=== PATIENT | female | born 1950 | race Caucasian/White ===

== ENCOUNTER 2020-11-22 19:25 | Outpatient (REF) | payer MEDICARE, SELFPAY ==
[2020-11-22 20:36] LABS: Bilirubin Negative (Negative); Blood Negative (Negative); Clarity Cloudy (Clear); Glucose Negative (Negative); Ketones Negative (Negative); Leukocyte Esterase Trace (Negative); Nitrite Positive (Negative); Specific Gravity 1.025 (1.005-1.025); Urobilinogen 0.2 EU/dL (Up TO 0.2)
[2020-11-22 21:01] LABS: Bacteria Many HPF (Negative); C & S Indicated? Yes; Casts Negative LPF (Negative); Crystals Negative HPF (Negative); Epithelial Cells Few HPF (Negative); Mucus Negative (Negative); RBC 0-2 HPF (0-2)
== END 2020-11-22 19:45 ==
LOC: LBN 19:25
PROVIDERS: PCP Nurse Practitioner Family; Visit Provider Nurse Practitioner Family
DX: R30.0 Dysuria (principal)
CPT/HCPCS: 87077; 81003; 81015; 87086; 87186

== ENCOUNTER 2020-12-12 01:43 | Outpatient (CLI) | payer MEDICARE, SELFPAY ==
--- NOTE | 2020-12-12 12:55 | DI.MAMMO_ITS ---
EXAM: MG MAMMO SCREENING CLINICAL HISTORY: SCREENING, Z12.39 TECHNIQUE: Mammograms were interpreted according to the usual protocol including computer analysis w [employer] CAD system, tomosynthesis and C-view imaging. COMPARISON: [address] [facility]. FINDINGS: The breasts are composed of mainly fatty density , Breast Density category A. No suspicious masses or suspicious microcalcifications are seen. No skin thickening or abnormal axillary lymph nodes are seen. There has been no significant change from prior exams. IMPRESSION: BI-RADS Category 1, Negative mammogram Yearly screening mammography is recommended. Breast Density - Category A, fatty density. A negative radiographic report should not delay biopsy if a dominant or clinically suspicious mass is present. Up to ten percent of cancers are not identified on mammography. A negative report may reinforce clinical impression. Adenosis and dense breasts may obscure an underlying neoplasm. False positive reports average 6 to 10%. Patient will receive a letter notifying them of these results.
== END 2020-12-12 01:44 ==
LOC: DI 01:44
PROVIDERS: PCP Nurse Practitioner Family; Visit Provider Nurse Practitioner Family
DX: Z12.31 Encounter for screening mammogram for malignant neoplasm of breast (principal)
CPT/HCPCS: 77063; 77067

== ENCOUNTER 2021-09-01 01:42 | Outpatient (CLI) | payer MEDICARE, SELFPAY ==
--- NOTE | 2021-09-01 07:00 | DI.MRI_ITS ---
Exam(s) MR LUMBAR SPINE WO EXAM: MR LUMBAR SPINE WO CLINICAL HISTORY: Chronic back pain with bilat sciatica,M54.31.M54.32. TECHNIQUE: Multiplanar multisequence MRI of the Lumbar spine was performed. COMPARISON: CR XR LUMBAR SPINE- 2 OR 3 VIEWS [id number] from 08/07/2015 MR MRI LUMBAR SPINE W/O [id number] from 08/07/2015 CR XR LUMBAR SPINE- 2 OR 3 VIEWS [id number] from 08/07/2015 MR MRI LUMBAR SPINE W/O [id number] from 08/07/2015 FINDINGS: Conus medullaris is at normal level. There is no evidence of conus mass nor subjacent clumping of in trathecal nerve roots to suggest arachnoiditis. The distal thecal sac appears unremarkable and there is again noted to end at the mid S2 level..There is a tiny Tarlov intra sacral cyst at S3 level agai n noted, unchanged. Bones:There are no fractures nor ominous osseous lesions in the lumbar vertebral bodies and visualize d sacrum. With respect to the individual levels... T12-L1: Unremarkable L1-2: Normal disc height and signal. No disc herniation nor central canal stenosis.No foraminal steno sis L2-3: Normal disc height and signal. Mild annular bulging. No distinct disc herniation.There is mil d central spinal canal stenosis noted which is related to short AP dimensions the pedicles and degene rative changes in the facet joints, more so on the right side. There is again noted asymmetric facet arthropathy on the right side, unchanged, and this results in mild right-sided foraminal stenosis at this level despite no loss of disc height. The mild narrowing is related to theright side facet art hropathy. L3-4: Normal disc height. There is annular bulging again noted. Moderate central spinal canal steno sis due to short AP dimensions the pedicles, annular bulging and some degenerative change in the face t joints and ligamentum flavum hypertrophy. No prominent foraminal stenosis. L4-5: Normal disc height but there is now approximately 3 millimeters anterolisthesis L4 upon L5 whic h is related to facet arthropathy bilaterally at this level. This results in severe central spinal c anal stenosis which has further progressed. This listhesis is related to facet arthropathy. There a re no L4 pars defects. Also ligamentum flavum hypertrophy. There is an element of mild foraminal st enosis now evident. There is mild impingement of the exiting nerve roots do the listhesis but no pro minent flattening of these nerve roots. Again noted is high signal within both degenerative facet lora ints at this level. L5-S1: Preserved disc height. No disc herniation. Moderate-severe spinal canal stenosis also noted at this level due to mild annular bulging, short AP dimensions the pedicles and degenerative changes in the facet joints bilaterally at this level. Also ligamentum flavum hypertrophy. Soft tissues: paraspinal soft tissues appear unremarkable. IMPRESSION: 1. Multilevel findings as described individually above. Compared to the prior CT scan of 08/07/2015 the amount a spinal canal stenosis at L4-5 has further increased, this related to the fact that there is now an element of degenerative anterolisthesis of L4 upon L5. 2. Amount of spinal canal stenosis at L5-S1 appears similar to previous as it is the amount of spinal canal stenosis at L3-4. 3. Other findings as above. DATA REPOSITORY:
== END 2021-09-01 02:02 ==
PROVIDERS: PCP Nurse Practitioner Family; Visit Provider Nurse Practitioner Family
DX: M54.31 Sciatica, right side (principal); M54.32 Sciatica, left side; M43.16 Spondylolisthesis, lumbar region; M48.061 Spinal stenosis, lumbar region without neurogenic claudication
CPT/HCPCS: 36415; 80053; 80061; 72148; 83036; 84439; 84443

== ENCOUNTER 2021-09-01 02:44 | Outpatient (CLI) | payer MEDICARE, SELFPAY ==
[2021-09-01 10:40] LABS: Hemoglobin A1C 6.1 % (<5.7)
[2021-09-01 11:44] LABS: ALT 19 U/L (14-59); AST 13 U/L (15-37); Albumin 3.4 g/dL (3.4-5.0); Alkaline Phosphatase 81 U/L (46-116); Anion Gap 6.1 mmol/L (3-11); BUN 14 mg/dL (7-18); Bilirubin, Total 0.5 mg/dL (0.2-1.0); CO2 32.9 mmol/L (21.0-32.0); CREATININE 0.9 mg/dL (0.55-1.02); Calcium 9.2 mg/dL (8.5-10.1); Calculated LDL 121 mg/dL (<100); Chloride 108 mmol/L (98-107); Cholesterol 212 mg/dL (<200); Glucose 97 mg/dL (74-106); HDL Cholesterol 78 mg/dL (40-60); Potassium 4.1 mmol/L (3.5-5.1); Sodium 147 mmol/L (136-145); TSH 0.73 uIU/mL (0.36-3.74); Total Protein 6.2 g/dL (6.4-8.2); Triglyceride 69 mg/dL (<150)
[2021-09-01 12:01] LABS: FREE T4 0.81 ng/dL (0.76-1.46)
== END 2021-09-01 02:45 | disposition home or self-care (01) ==
LOC: LBO 02:44
PROVIDERS: PCP Nurse Practitioner Family; Visit Provider Nurse Practitioner Family
DX: E78.5 Hyperlipidemia, unspecified (principal); R73.01 Impaired fasting glucose
CPT/HCPCS: 36415; 80053; 80061; 83036; 84439; 84443

== ENCOUNTER 2021-10-13 03:59 | Outpatient (CLI) | payer MEDICARE, SELFPAY ==
[2021-10-13 12:47] LABS: Abs Immature Grans 0.01 10^3/uL (0.0-0.06); Absolute Basophil Count 0.05 10^3/uL (0.0-0.2); Absolute Eosinophil Count 0.14 10^3/uL (0.0-0.7); Absolute Lymphocyte Count 2.31 10^3/uL (1.2-3.4); Absolute Neutrophil Count 2.14 10^3/uL (1.2-6.7); Eosinophils % 2.7; HCT 40.3 % (36.0-46.0); HGB 12.5 g/dL (11.2-15.7); Immature Grans % 0.2; MCV 90.4 fL (80-95); Monocytes % 11.4; Neutrophils % 40.7; Nucleated RBC 0 %; Platelet Count 231 10^3/uL (130-400); RBC 4.46 10^6/uL (3.93-5.22); RDW 14.5 % (11.7-14.6); RDW-SD 48.1 fL; WBC 5.25 10^3/uL (4.4-10.8)
== END 2021-10-13 04:00 | disposition home or self-care (01) ==
LOC: LBO 04:00
PROVIDERS: PCP Nurse Practitioner Family; Visit Provider Nurse Practitioner Family
DX: R53.83 Other fatigue (principal)
CPT/HCPCS: 36415; 85025

== ENCOUNTER 2021-11-11 01:15 | Outpatient (CLI) | payer MEDICARE, SELFPAY ==
--- NOTE | 2021-11-11 06:45 | DI.US_ITS ---
Exam(s) US THYROID EXAM: US THYROID CLINICAL HISTORY: Hx of thyroid nodule, s/p partial thyroidectomy,Z86.39 TECHNIQUE: Ultrasound performed using standard protocol. COMPARISON: US US THYROID AND OR PARATHYROID [id number] from 08/20/2015 FINDINGS: Thyroid ultrasound was performed according to the usual protocol. The patient has had a prior left l obectomy. Right lobe measures 5.6 x 3.0 x 2.5 cm. The parenchyma is heterogeneous. There is a 3.7 cm in diameter mass of the lower pole of the right thyroid lobe. This is cysts solid and hyperechoic with smooth margins and wider than tall. No echogenic foci. This is a TR 3 lesion b y the TI-RADS classification. Fine needle aspiration is recommended for TR 3 lesions greater than 2. 5 cm in diameter. Two 4 millimeter nodules are also seen in right thyroid lobe, these are TR 4 and TR 2 category respec tively. No follow-up recommended for these nodules. IMPRESSION: Fine needle aspiration recommended for 3.7 cm greatest diameter inferior pole right thyroid lobe mas s, TR 3 in TI-RADS classification. DATA REPOSITORY:
== END 2021-11-11 01:35 ==
PROVIDERS: PCP Nurse Practitioner Family; Visit Provider Nurse Practitioner Family
DX: Z86.39 Personal history of other endocrine, nutritional and metabolic disease (principal); E04.2 Nontoxic multinodular goiter
CPT/HCPCS: 76536

== ENCOUNTER 2021-12-31 01:02 | Outpatient (CLI) | payer MEDICARE, SELFPAY ==
--- NOTE | 2021-12-31 07:15 | DI.MAMMO_ITS ---
Exam(s) MAMMO SCREENING EXAM: MAMMO SCREENING CLINICAL HISTORY: screening,Z12.39 TECHNIQUE: Mammograms were interpreted according to the usual protocol including computer analysis w [employer] system, tomosynthesis and C-view imaging. COMPARISON: FINDINGS: The breasts are of moderate density with fairly symmetrical distribution of fibroglandular tissue. N o dominant mass or clumped microcalcification is identified in either breast. The current examinatio n is compared with previous examinations including December 2020 and there has been no gross interval change in appearance in comparison with the prior studies. IMPRESSION: No specific evidence of malignancy at this time. Routine screening examinations are suggested at yea rly intervals in this age group according to the ACS ACR guidelines. BI-RADS Category 1 - Negative Breast Density - Category B - Scattered areas of fibroglandular density
== END 2021-12-31 01:22 ==
PROVIDERS: PCP Nurse Practitioner Family; Visit Provider Nurse Practitioner Family
DX: Z12.31 Encounter for screening mammogram for malignant neoplasm of breast (principal)
CPT/HCPCS: 77063; 77067

== ENCOUNTER 2022-04-17 01:28 | Outpatient (CLI) | payer MEDICARE, SELFPAY ==
[2022-04-17 12:44] LABS: FREE T4 0.81 ng/dL (0.76-1.46); TSH 1.17 uIU/mL (0.36-3.74)
[2022-04-17 22:20] LABS: T3, Total 110 ng/dL (97-169)
== END 2022-04-17 01:29 | disposition home or self-care (01) ==
LOC: LBO 01:29
PROVIDERS: PCP Nurse Practitioner Family; Visit Provider Student in an Organized Health Care Education/Training Program
DX: E04.1 Nontoxic single thyroid nodule (principal)
CPT/HCPCS: 36415; 84439; 84443; 84480

== ENCOUNTER → 2022-06-23 02:20 | Outpatient (CLI) | payer MEDICARE, SELFPAY ==
--- NOTE | 2022-06-23 07:30 | DI.RAD_ITS ---
Exam(s) XR SHOULDER LT COMPLETE 2+V EXAM: XR SHOULDER LT COMPLETE 2+V CLINICAL HISTORY: bilateral shoulder pain, suspecting OA,M25.511,M25.512 TECHNIQUE: COMPARISON: No exams were available for comparison FINDINGS: Five views were obtained. There is mild narrowing of cartilaginous joint space of the glenohumeral j oint. There are very prominent osteophytes of the acromion with anterior extension of acromial osteo phyte noted on the Y-view. There are mild marginal osteophytes of the glenoid and humeral head. IMPRESSION: Degenerative changes of the shoulder as described above. RADIATION DOSE DELIVERED: Total DLP
--- NOTE | 2022-06-23 07:30 | DI.RAD_ITS ---
Exam(s) XR SHOULDER RT COMPLETE 2+V EXAM: XR SHOULDER RT COMPLETE 2+V CLINICAL HISTORY: bilateral shoulder pain, suspecting OA,M25.511, M25.512 TECHNIQUE: COMPARISON: CR XR SHOULDER LT COMPLETE 2+V from 06/23/2022 FINDINGS: Five views were obtained. There is a probable mild narrowing of the cartilaginous joint space of the glenohumeral joint. There are moderate hypertrophic degenerative changes of the acromioclavicular j oint. Moderate marginal osteophytes of glenohumeral joint noted as well. No other significant bony abnormality seen. IMPRESSION: DJD of acromioclavicular and glenohumeral joints. RADIATION DOSE DELIVERED: Total DLP
--- NOTE | 2022-06-23 07:33 | DI.RAD_ITS ---
Exam(s) XR HIP PELVIS ADULT BL EXAM: XR HIP PELVIS ADULT BL CLINICAL HISTORY: bilateral hip pain, suspecting OA,M25.551,M25.552 TECHNIQUE: COMPARISON: No exams were available for comparison FINDINGS: Three views were obtained. There is moderate loss of the cartilaginous joint spaces of both hips sup eriorly. Mild bilateral subchondral sclerotic changes of the acetabula seen bilaterally. Mild larry nal acetabular osteophytes and trochanteric osteophytes noted bilaterally. Note is also made of degenerative changes of the lower lumbar spine and SI joints bilaterally. IMPRESSION: Moderate DJD of the hip joints bilaterally. RADIATION DOSE DELIVERED: Total DLP
== END ==
PROVIDERS: PCP Nurse Practitioner Family; Visit Provider Nurse Practitioner Family
DX: M19.011 Primary osteoarthritis, right shoulder (principal); M16.0 Bilateral primary osteoarthritis of hip; M19.012 Primary osteoarthritis, left shoulder
CPT/HCPCS: 73521; 73030

== ENCOUNTER 2022-07-28 08:24 | Outpatient (CLI) | payer MEDICARE, SELFPAY ==
--- NOTE | 2022-07-28 08:24 | RT.EKG_ITS ---
APPROVED REPORT Exam: Resting ECG Reason for Exam: HTN, chest pain Patient Location: O HR:58 bpm ECG Measurements Heart Rate 58 AXIS UT 193 P 26 QRSd 105 QRS -8 QT 429 T 25 QTc 422 Conclusion Sinus rhythm...normal P axis, V-rate 50- 99 Normal Electrocardiogram
== END 2022-07-28 08:25 | disposition home or self-care (01) ==
LOC: DI.CARD 08:26
PROVIDERS: PCP Nurse Practitioner Family; Visit Provider Internal Medicine Cardiovascular Disease
DX: I10 Essential (primary) hypertension (principal); R07.9 Chest pain, unspecified
CPT/HCPCS: 93010

== ENCOUNTER → 2022-07-28 13:39 | Outpatient (BNVA) | payer MEDICARE, SELFPAY | PROVIDERS: PCP Nurse Practitioner Family; Referring Provider Nurse Practitioner Family; Visit Provider Internal Medicine Cardiovascular Disease | DX: R07.89 Other chest pain (principal); I10 Essential (primary) hypertension; E78.5 Hyperlipidemia, unspecified | CPT/HCPCS: 93005; 99203 ==

== ENCOUNTER → 2022-08-04 13:43 | Outpatient (BNVA) | payer MEDICARE, SELFPAY | PROVIDERS: PCP Nurse Practitioner Family; Referring Provider Nurse Practitioner Family; Visit Provider Student in an Organized Health Care Education/Training Program | DX: M75.102 Unspecified rotator cuff tear or rupture of left shoulder, not specified as traumatic (principal); M12.811 Other specific arthropathies, not elsewhere classified, right shoulder; M12.812 Other specific arthropathies, not elsewhere classified, left shoulder | CPT/HCPCS: 99203; 99213 ==

== ENCOUNTER 2022-08-11 14:26 | Outpatient (CLI) | payer MEDICARE, SELFPAY ==
--- NOTE | 2022-08-11 14:15 | RT.EKG_ITS ---
APPROVED REPORT Exam: Resting ECG Reason for Exam: Dizzy Patient Location: O HR:53 bpm ECG Measurements Heart Rate 53 AXIS MT 188 P 25 QRSd 103 QRS 22 QT 458 T 31 QTc 430 Conclusion Sinus rhythm...normal P axis, V-rate 50- 99 Normal Electrocardiogram
== END 2022-08-11 14:27 | disposition home or self-care (01) ==
LOC: DI.CM 14:26
PROVIDERS: PCP Nurse Practitioner Family; Visit Provider Nurse Practitioner Family
DX: R42 Dizziness and giddiness (principal); R07.89 Other chest pain
CPT/HCPCS: 93010

== ENCOUNTER → 2022-09-29 02:48 | Outpatient (CLI) | payer MEDICARE, SELFPAY ==
--- NOTE | 2022-09-29 10:31 | DI.US_ITS ---
APPROVED REPORT EXAM: Comprehensive 2D, Doppler, and color-flow Echocardiogram Patient Location: Out-Patient Vest Maker: Ericka Ramos RDCS (AE) Indications: Chest pain, HTN Other Information Study Quality: Adequate Conclusion Normal left ventricular wall thickness and chamber size. Estimated ejection fraction is 60%. Wall m otion is normal Normal right ventricular size and systolic function Both atria are normal in size Aortic valve is trileaflet with trace regurgitation Normal mitral valve with mild regurgitation Normal tricuspid valve with moderate eccentric regurgitation. Estimated right ventricular systolic p ressure is 28 mmHg Mildly dilated ascending aorta Wall motion Left Ventricle The left ventricle is normal size. The left ventricular systolic function is normal. The left ventric ular ejection fraction is within the normal range. There is normal left ventricular wall thickness. T here is normal LV segmental wall motion. There is no ventricular septal defect visualized. LVEF is 60 %. Right Ventricle The right ventricle is normal size. The right ventricular systolic function is normal. The RVSP is 27 .6mmHg. Atria The left atrium size is normal. The right atrium size is normal. The interatrial septum is intact wit h no evidence for an atrial septal defect. Aortic Valve The aortic valve is normal in structure. Aortic valve is trileaflet. There is no aortic valvular sten osis. Trace aortic regurgitation. Mitral Valve The mitral valve is normal in structure. No evidence of mitral valve stenosis. Mild mitral regurgitat ion. Tricuspid Valve The tricuspid valve is normal in structure. There is no tricuspid valve stenosis. Moderate tricuspid regurgitation. Pulmonic Valve The pulmonary valve is normal in structure. There is no pulmonic valvular stenosis. Trace pulmonic re gurgitation. Great Vessels The aortic root is normal in size. The ascending aorta is mildly dilated. Aortic arch is normal in ca liber. IVC is normal in size and collapses >50% with inspiration. Pericardium There is no pericardial effusion. 2D Dimensions IVSD d PLAX 0.90 cm F: 0.6-1.0 LV Vol A2C d MOD 100.7 mL LVPW d PLAX 0.87 cm F: 0.6 - 1.0 LV Vol A4C d MOD 106.7 mL LVID d PLAX 4.58 cm F: 3.8 - 5.2 LA vol/ BSA A2C s A-L 29.0 mL/m2 LVDs 3.00 cm F: 2.2 - 3.5 LA vol/ BSA A4C s A-L 21.8 mL/m2 Ao Root d 2.93 cm F: 2.7 - 3.3 LA Vol/ BSA Biplane s A-L 26.0 mL/m2 RA Area A4C 15.49 cm2 LA Area A4C s MOD 15.53 cm2 RA Vol/ BSA A4C s A-L 23.9 mL/m2 LA Area A2C s MOD 18.45 cm2 Ao Asc Diam d 3.81 cm F: 2.3 - 3.1 LV EF A4C MOD 59.6 % LV EF Teichholz 62.6 % LV EF A2C MOD 60.4 % LVEF (Cutler's) 59.51 % F: 54 - 74 LV EF Biplane MOD 59.5 % LV Volume 81.28 mL F: 46 - 106 SV 62.11 mL LV Volume Index 45.40 mL/m2 F: 29 - 61 SV Index 34.63 mL/m2 LV Vol Biplane MOD 104.4 mL FS 33.70 % M-Mode TAPSE 2.64 cm (M/F) >1.7 LV Diastology MV E' medial 0.060 (>0.07 m/s) E/A Ratio 0.9 LV E/e MED 13.60 (<14) MV E Vmax 0.82 (0.4-1.3 m/s) MV E' lateral 0.075 (>0.1 m/s) MV A Vmax 0.95 (0.4-1.3 m/s) LV E/e LAT 10.95 (<14) MV E/A Ratio 0.84 MV E/E' medial 13.62 MV E/E' lateral 10.96 Aortic Valve LVOT Area 2.86 cm2 AoV Area Vmax 1.92 cm2 LVOT Vmax 0.90 m/s AoV Area/ BSA (Vmax) 1.07 cm2/m2 LVOT Mean Royer. 0.56 m/s MARQUEZ Mean Royer. 1.78 cm2 LVOT Peak Grad 3.3 mmHg MARQUEZ Mean Royer. Index 0.99 cm2/m2 LVOT Mean Grad 1.5 mmHg LVOT VTI 0.230 m LVOT Diam s 1.90 cm AoV Vmax 1.35 m/s Velocity Ratio 0.66 AoV Mean Royer. 0.89 m/s AoV Peak Grad 7.2 mmHg LVOT SV 65.87 mL AoV Mean Grad 3.7 mmHg AoV VTI 0.289 m AoV Area VTI 2.28 cm2 AoV Area/ BSA (VTI) 1.27 cm/m2 Mitral Valve MV DT 202 (160-240 msec) MV PHT 58 msec MV Area PHT 3.76 cm2 MV VTI 0.434 m MV Area VTI 1.52 (4.0-6.0 cm2) Pulmonary Valve PV Vmax 0.77 (0.5-1.5 m/s) RVOT Peak Gr. 1.51 mmHg PV Peak Grad 2.4 mmHg RVOT Mean Gr. 0.85 mmHg PV Mean Grad 1.1 mmHg RVOT VTI 0.170 m PV VTI 0.171 m RVOT Vmax 0.61 m/s Tricuspid Valve TR Peak Grad 24.6 mmHg TR Vmax 2.48 m/s RA Pressure 3.00 mmHg RVSP (TR) 27.6 mmHg
== END ==
PROVIDERS: PCP Nurse Practitioner Family; Visit Provider Internal Medicine Cardiovascular Disease
DX: R07.9 Chest pain, unspecified (principal)
CPT/HCPCS: 93306

== ENCOUNTER → 2022-10-06 11:01 | Outpatient (BNVA) | payer MEDICARE, SELFPAY | PROVIDERS: PCP Nurse Practitioner Family; Referring Provider Nurse Practitioner Family; Visit Provider Student in an Organized Health Care Education/Training Program | DX: M19.011 Primary osteoarthritis, right shoulder (principal); M75.102 Unspecified rotator cuff tear or rupture of left shoulder, not specified as traumatic | CPT/HCPCS: 99213 ==

== ENCOUNTER 2023-01-14 01:22 | Outpatient (CLI) | payer MEDICARE, SELFPAY ==
--- NOTE | 2023-01-14 07:00 | DI.MAMMO_ITS ---
Exam(s) MAMMO SCREENING EXAM: MAMMO SCREENING CLINICAL HISTORY: screening,Z12.39 TECHNIQUE: Mammograms were interpreted according to the usual protocol including computer analysis w [employer] CAD system, tomosynthesis and C-view imaging. COMPARISON: 28 August 2016 through January 20 FINDINGS: The breasts are composed of scattered fibroglandular densities, Breast Density category B. No suspicious masses or suspicious microcalcifications are seen. No skin thickening or abnormal axillary lymph nodes are seen. There has been no significant change from prior exams. IMPRESSION: BI-RADS Category 1, Negative mammogram Yearly screening mammography is recommended. Breast Density - Category B, scattered fibroglandular densities. A negative radiographic report should not delay biopsy if a dominant or clinically suspicious mass is present. Up to ten percent of cancers are not identified on mammography. A negative report may reinforce clinical impression. Adenosis and dense breasts may obscure an underlying neoplasm. False positive reports average 6 to 10%. Patient will receive a letter notifying them of these results.
== END 2023-01-14 01:42 ==
LOC: DI 01:22
PROVIDERS: PCP Nurse Practitioner Family; Visit Provider Nurse Practitioner Family
DX: Z12.31 Encounter for screening mammogram for malignant neoplasm of breast (principal)
CPT/HCPCS: 77063; 77067

== ENCOUNTER 2023-01-14 02:11 | Outpatient (CLI) | payer MEDICARE, SELFPAY ==
[2023-01-14 13:40] LABS: ESR 8 mm/hr (0-30)
[2023-01-14 13:47] LABS: Hemoglobin A1C 5.9 % (<5.7)
[2023-01-14 15:03] LABS: BUN 17 mg/dL (7-18); CREATININE 0.9 mg/dL (0.55-1.02); Calculated LDL 118 mg/dL (<100); Chloride 105 mmol/L (98-107); Cholesterol 214 mg/dL (<200); Estimated GFR 67.08 (mL/min/1.73m2); Glucose 88 mg/dL (74-106); HDL Cholesterol 83 mg/dL (40-60); Sodium 144 mmol/L (136-145); Triglyceride 67 mg/dL (<150)
[2023-01-14 21:51] LABS: CRP, High Sensitivity 1.41 mg/L (See Note)
== END 2023-01-14 02:12 | disposition home or self-care (01) ==
LOC: LBO 02:11
PROVIDERS: PCP Nurse Practitioner Family; Visit Provider Nurse Practitioner Family
DX: E04.1 Nontoxic single thyroid nodule (principal); I10 Essential (primary) hypertension; R73.03 Prediabetes; R07.9 Chest pain, unspecified; M25.551 Pain in right hip; M25.552 Pain in left hip; M25.511 Pain in right shoulder; M25.512 Pain in left shoulder
CPT/HCPCS: 36415; 80048; 80061; 85652; 86141; 87798; 83036; 84443; 86431; 86618

== ENCOUNTER 2023-01-15 01:21 | Outpatient (CLI) | payer MEDICARE, SELFPAY ==
[2023-01-15 22:12] LABS: Rheumatoid Factor <8.6 IU/mL (<12.0)
[2023-01-17 19:08] LABS: Anaplasma phagocytophilum Negative (Negative); B. miyamotoi PCR Negative (Negative); Babesia divergens/MO-1 Negative (Negative); Babesia duncani Negative (Negative); Babesia microti Negative (Negative); Ehrlichia chaffeensis Negative (Negative); Ehrlichia ewingii/canis Negative (Negative); Ehrlichia muris eauclairensis Negative (Negative)
[2023-01-18 09:48] LABS: Lyme Ab w Rflx to Lyme Confirm Negative (Negative)
== END 2023-01-15 01:22 | disposition home or self-care (01) ==
LOC: LOS 01:22
PROVIDERS: PCP Nurse Practitioner Family; Visit Provider Nurse Practitioner Family
DX: M25.511 Pain in right shoulder (principal); M25.512 Pain in left shoulder; M25.551 Pain in right hip; M25.552 Pain in left hip; M25.50 Pain in unspecified joint
CPT/HCPCS: 36415; 87798; 86431; 86618

== ENCOUNTER → 2023-07-29 10:39 | Outpatient (BNVA) | payer MEDICARE, SELFPAY | PROVIDERS: PCP Nurse Practitioner Family; Referring Provider Nurse Practitioner Family; Visit Provider Internal Medicine Cardiovascular Disease | DX: I10 Essential (primary) hypertension (principal) | CPT/HCPCS: 99212 ==

== ENCOUNTER 2023-12-24 01:48 | Outpatient (CLI) | payer MEDICARE, SELFPAY ==
[2023-12-24 13:18] LABS: Hemoglobin A1C 5.7 % (<5.7)
[2023-12-24 13:24] LABS: Anion Gap 7.8 mmol/L (3-11); BUN 20 mg/dL (7-18); CO2 32.2 mmol/L (21.0-32.0); Calcium 9.4 mg/dL (8.5-10.1); Chloride 105 mmol/L (98-107); Estimated GFR 58.75 (mL/min/1.73m2); Glucose 104 mg/dL (74-106); Potassium 3.8 mmol/L (3.5-5.1); Sodium 145 mmol/L (136-145)
[2023-12-24 22:46] LABS: Hepatitis C Ab w Rflx HCV PCR Negative (Negative)
== END 2023-12-24 01:49 | disposition home or self-care (01) ==
LOC: LBO 01:48
PROVIDERS: PCP Nurse Practitioner Family; Visit Provider Nurse Practitioner Family
DX: I10 Essential (primary) hypertension (principal); R73.03 Prediabetes
CPT/HCPCS: 36415; 80048; 86803; 83036

== ENCOUNTER → 2024-01-19 03:50 | Outpatient (CLI) | payer MEDICARE, SELFPAY ==
--- NOTE | 2024-01-19 07:30 | DI.MAMMO_ITS ---
Exam(s) MAMMO SCREENING EXAM: MAMMO SCREENING CLINICAL HISTORY: screening,Z12.39 TECHNIQUE: Mammograms were interpreted according to the usual protocol including computer analysis w [employer] CAD system, tomosynthesis and C-view imaging. COMPARISON: 2015 through 2022 FINDINGS: The breasts are composed of scattered fibroglandular densities, Breast Density category B. No suspicious masses or suspicious microcalcifications are seen. No skin thickening or abnormal axillary lymph nodes are seen. There has been no significant change from prior exams. IMPRESSION: BI-RADS Category 1, Negative mammogram Yearly screening mammography is recommended. Breast Density - Category B, scattered fibroglandular densities. A negative radiographic report should not delay biopsy if a dominant or clinically suspicious mass is present. Up to ten percent of cancers are not identified on mammography. A negative report may reinforce clinical impression. Adenosis and dense breasts may obscure an underlying neoplasm. False positive reports average 6 to 10%. Patient will receive a letter notifying them of these results.
== END ==
PROVIDERS: PCP Nurse Practitioner Family; Visit Provider Nurse Practitioner Family
DX: Z12.31 Encounter for screening mammogram for malignant neoplasm of breast (principal)
CPT/HCPCS: 77063; 77067

== ENCOUNTER 2025-03-01 02:23 | Outpatient (CLI) | payer MEDICARE, SELFPAY ==
--- NOTE | 2025-03-01 07:15 | DI.MRI_ITS ---
Exam(s) MR LUMBAR SPINE WO EXAM: MR LUMBAR SPINE WO CLINICAL HISTORY: chronic low back pain,LUMBOSACRAL RADICULOPATHY DUE TO DJD. TECHNIQUE: Multiplanar multisequence MRI of the Lumbar spine was performed. COMPARISON: MR MR LUMBAR SPINE WO from 09/01/2021 FINDINGS: Bones: The last intervertebral disc space is designated the L5/S1 level for the numbering purpose of this examination. The vertebral body heights are well maintained. Alignment is satisfactory. The si gnal characteristics are unremarkable. Cord: The conus tip ends at the L1 level. It is of normal size and signal intensity. T12-L1: No disc herniations or bulges are present. No central spinal canal or neural foraminal stenos is. L1-2: No disc herniations or bulges are present. No central spinal canal or neural foraminal stenosis . L2-3: No disc herniations or bulges are present. There are degenerative changes of the facets and hyp ertrophy of the ligamentum flavum. There is mild narrowing of the central spinal canal.There is mild bilateral neural foraminal narrowing. L3-4: There is a diffuse disc bulge. There are degenerative changes of the facets with hypertrophy of the ligamentum flavum. The findings cause marked central spinal canal stenosis. There is moderate bi lateral neural foraminal stenosis. L4-5: There is mild anterolisthesis of L4 on L5. There is a diffuse disc bulge. There are hypertrophi c changes of the facets and ligamentum flavum. There is marked central spinal canal stenosis. There i s moderately severe bilateral neural foraminal stenosis. L5-S1: No disc herniations or bulges are present. There are degenerative changes of the facets and hy pertrophy of the ligamentum flavum. The findings do cause moderate narrowing of the central spinal ca nal.There is [id number] bilateral neural foraminal stenosis, left greater than right. Soft tissues: The visualized SI joints and sacrum are well maintained. The paraspinal soft tissues ar e unremarkable. There are few small synovial cyst associated with the facet joints in the lumbar spin e which project into the soft tissues. They do not project into the spinal canal to cause any nerve root or central spinal canal concerns. Incidental note is made of a small lipoma in the right parasp inal muscles. IMPRESSION: 1. Marked degenerative changes seen at L4-L5 causing marked central spinal canal stenosis and bilater al neural foraminal stenosis. 2. Marked degenerative changes at L3-L4 causing marked central spinal canal stenosis and bilateral ne ural foraminal stenosis. 3. Degenerative changes seen at L5-S1 with moderate central spinal canal stenosis and bilateral neura l foraminal stenosis. 4. Degenerative changes at L2-3 causing mild bilateral neural foraminal stenosis and mild central spi nal canal stenosis. DATA REPOSITORY:
== END 2025-03-01 02:43 ==
LOC: DI 02:23
PROVIDERS: PCP Nurse Practitioner Family; Visit Provider Nurse Practitioner Family
DX: M47.27 Other spondylosis with radiculopathy, lumbosacral region (principal)
CPT/HCPCS: 72148

== ENCOUNTER 2025-03-08 00:28 | Outpatient (CLI) | payer MEDICARE, SELFPAY ==
--- NOTE | 2025-03-08 15:25 | DI.MAMMO_ITS ---
Exam(s) MAMMO SCREENING EXAM: MAMMO SCREENING CLINICAL HISTORY: screening,Z12.39. TECHNIQUE: Bilateral full field digital CC and MLO mammographic images were obtained with 3D tomosyn thesis and utilizing computer aided detection (CAD). COMPARISON: Prior mammograms were reviewed. FINDINGS: There has been no significant change in the appearance and distribution of the fibroglandular tissue. There are no new spiculated masses nor malignant appearing microcalcification groups. There is no significant architectural distortion nor skin thickening-retraction. IMPRESSION: No radiographic evidence of malignancy. BI-RADS Category 1 - Negative Breast Density - Category B - There are scattered areas of fibroglandular density. Breast density Category C or D implies that the patient has dense breast tissue. Dense breast tissue can make it harder to find cancer on a mammogram. Dense breast tissue is also associated with an incr eased risk of breast cancer. This information about the result of the mammogram report was provided to the patient to raise their awareness. Use this report when you speak with the patient about their risks for breast cancer, which includes their family history. At that time, you may recommend additional screening tests (Ultrasoun d or MRI) as these tests may add significant information. A negative radiographic report should not delay biopsy if a dominant or clinically suspicious mass is present. Up to ten percent of cancers are not identified on mammography. A negative report may reinforce clinical impression. Adenosis and dense breasts may obscure an underlying neoplasm. False positive reports average 6 to 10%. Patient will receive a letter notifying them of these results.
== END 2025-03-08 00:48 ==
LOC: DI 00:29
PROVIDERS: PCP Nurse Practitioner Family; Visit Provider Nurse Practitioner Family
DX: Z12.31 Encounter for screening mammogram for malignant neoplasm of breast (principal); R92.323 Mammographic fibroglandular density, bilateral breasts
CPT/HCPCS: 77063; 77067

== ENCOUNTER 2025-03-14 13:31 | Outpatient (CLI) | payer MEDICARE, SELFPAY ==
[2025-03-14] VITALS (9 sets, daily range): BP systolic 137–178; BP diastolic 82–121; PULSE 54–68; RESP 13–24; TEMP 36.7; O2SAT 97–99
--- NOTE | 2025-03-14 06:00 | DI.RAD_ITS ---
Exam(s) XR PAIN CLINIC LUMBAR SP 2V EXAM: XR PAIN CLINIC LUMBAR SP 2V CLINICAL HISTORY: DX: Lumbar Spondylosis TECHNIQUE: 2D and realtime digital imaging was performed. Radiologist not present. CONTRAST MATERIAL: None. COMPARISON: No exams were available for comparison FINDINGS: Fluoroscopy was provided for pain management therapy. Lumbar spine level treatment Please refer to procedure report or details. Radiation Exposure Index: Ka,r=18.72 mGy IMPRESSION: As above. RADIATION DOSE DELIVERED:
--- NOTE | 2025-03-14 14:41 | PDOC.PAIN_ITS ---
Date of service: 03/14/25 Time of Service: 14:41 Pain Managment Procedure Note Procedure Note Procedure Note: PROCEDURE NOTE Bilateral Lumbar Medial Branch Blocks Date of Service: March 14, 2025 Patient: Maria Esther Orozco Provider: Danny Munoz DO, MPH Maria Esther Orozco has [facility] for lumbar medial branch blocks. Pre-operative diagnosis: Lumbar Spondylosis without Myelopathy ICD-10 M47.816 Post-operative diagnosis: Same Pre-procedure pain: VAS= 10/10 with extension COMMENTS: She was previously seen by Dr. Trevizo in our clinic. Her symptoms are unchanged. Jonathon was interviewed and the medical records were reviewed. There were no medical, pharmacologic, radiographic or other structural contraindications to attempting fluoroscopically guided local anesthetic lumbar medial branch blocks. Risks and potential side effects were discussed. I also discussed the potential benefit(s) of the procedure with Maria Esther, and voiced concerns were addressed. After Maria Esther was completely informed about the procedure, the printed consent form was signed. A standard time-out procedure was performed. Maria Esther was placed in the prone position on the fluoroscopy table. Automated blood pressure cuff and pulse oximeter were applied. The skin entry points for approaching the anatomic target points of the segmental medial branches of bilateral L3,L4,L5 were identified with fluoroscopy and marked. The skin at the target site area was thoroughly prepared with Chlorhexadine. The skin was then draped. Next, a 25 gauge 3.5 spinal needle was placed under fluoroscopic guidance down on to the target point (the articular pillar) for each respective segmental medial branch. Position was confirmed in A/P and lateral views. Aspiration revealed no blood or clear fluid. Next, 0.25ml of omnipaque 240 was injected at each level. No contrast following a vascular or neural pattern was visualized under continuous fluoroscopy. Next, 0.25 ml of preservative-free 0.5% bupivicaine was injected at each level. There was no unusual discomfort expressed by Maria Esther. The needles were withdrawn without difficulty. (49 mls of Omnipaque was wasted) Maria Esther was observed and was without hemodynamic, neurologic, or allergic reactions.? Fluoroscopic images were digitally archived. Provacative testing using the Modified Shaver's facet loading test- Left side Right Side Directly before the block VAS (0-10) = 10/10 VAS (0-10) = 10/10 Five minutes after the block VAS (0-10) = 1/10 VAS (0-10) = 1/10 Percentage relief obtained with this diagnostic block 90% 90% Any improved physical functioning directly after the blocks? Able to move her back with ease. Follow up plans and appointments were discussed with Maria Esther. Maria Esther was instructed to keep careful note of how the usual pain was modified by these injections. Specifically, to keep a pain diary for the next 4 hours using a numeric pain scale of 0-10 and report these results. Post procedure instruction was given as documented in the nursing documentation and having met discharge criteria, the patient was [facility]. Based on the medial branches blocked today, if they patient has adequate relief and we are able to proceed to radiofrequency ablation, the treatment should result in the denervation of the bilateral L4-L5 and L5-S1 facet joints. We would expect to denervate a total of 4 facets during the radiofrequency ablation. COMMENTS: No apparent complications. Post-procedure pain: VAS= 1/10 Maria Esther will call back with 0-4 hour post-procedure pain scores. I personally performed the entire procedure. DANNY MUNOZ DO, MPH ABPM&R-subspecialty board certification in Pain Medicine [facility] Coding Conscious Sedation used for procedure: No CPT Codes: LMBB (includes Fluoro) Lumbar/Sacral, single lvl *BILATERAL* - [id number] ([id number]~G5) LMBB (includes Fluoro) Lumbar/Sacral, 2nd lvl - 30235 ([id number] ~G) Additional Codes: Date of Service (70773) Date of service: 03/14/25
[2025-03-14] MEDS: Omnipaque 240 MG/ML 50 ML BTL IJ (14:51)
[2025-03-14] MEDS: Bupivacaine 0.5% Pres-Free 10 ML VIAL IJ (14:51)
[2025-03-14] MEDS: Nerve Block Tray 1 EACH MC (14:52)
== END 2025-03-14 13:32 | disposition home or self-care (01) ==
LOC: PC 13:32
PROVIDERS: PCP Nurse Practitioner Family; Visit Provider Preventive Medicine Occupational Medicine
DX: M47.816 Spondylosis without myelopathy or radiculopathy, lumbar region (principal); M54.50 Low back pain, unspecified
CPT/HCPCS: 64493; 64494; 72100; J0665; Q9967

== ENCOUNTER 2025-03-29 14:47 | Outpatient (CLI) | payer MEDICARE, SELFPAY ==
[2025-03-29] VITALS (9 sets, daily range): BP systolic 136–178; BP diastolic 80–113; PULSE 56–70; RESP 15–20; TEMP 36.6; O2SAT 98–99
--- NOTE | 2025-03-29 06:00 | DI.RAD_ITS ---
Exam(s) XR PAIN CLINIC LUMBAR SP 2V EXAM: XR PAIN CLINIC LUMBAR SP 2V CLINICAL HISTORY: Dx: Lumbar Spondylosis TECHNIQUE: 2D and realtime digital imaging was performed. Radiologist not present. CONTRAST MATERIAL: None. COMPARISON: No exams were available for comparison FINDINGS: Fluoroscopy was provided for pain management therapy. Lumbar spine level steroid injections. Please refer to procedure report or details. Radiation Exposure Index: Ka,r=19.13 mGy IMPRESSION: As above. RADIATION DOSE DELIVERED:
--- NOTE | 2025-03-29 15:49 | PDOC.PAIN ---
Date of service: 03/29/25 Time of Service: 15:49 Pain Managment Procedure Note Procedure Note Procedure Note: PROCEDURE NOTE Bilateral Lumbar Medial Branch Blocks #2 Date of Service: March 29, 2025 Patient: Maria Esther Orozco Provider: Danny Mckeon DO, MPH Maria Esther Orozco has been referred to [facility] for lumbar medial branch blocks. Pre-operative diagnosis: Lumbar Spondylosis without Myelopathy ICD-10 M47.816 Post-operative diagnosis: Same Pre-procedure pain: VAS= 10/10 COMMENTS: She did very well with her first LMBB Maria Esther? was interviewed and the medical records were reviewed. There were no medical, pharmacologic, radiographic or other structural contraindications to attempting fluoroscopically guided local anesthetic lumbar medial branch blocks. Risks and potential side effects were discussed. I also discussed the potential benefit(s) of the procedure with Maria Esther, and voiced concerns were addressed. After Maria Esther was completely informed about the procedure, the printed consent form was signed. A standard time-out procedure was performed. Maria Esther was placed in the prone position on the fluoroscopy table. Automated blood pressure cuff and pulse oximeter were applied. The skin entry points for approaching the anatomic target points of the segmental medial branches of bilateral L3,L4,L5 were identified with fluoroscopy and marked. The skin at the target site area was thoroughly prepared with Chlorhexadine. The skin was then draped. Next, a 25 gauge 3.5 spinal needle was placed under fluoroscopic guidance down on to the target point (the articular pillar) for each respective segmental medial branch. Position was confirmed in A/P and lateral views. Aspiration revealed no blood or clear fluid. Next, 0.25ml of omnipaque 240 was injected at each level. No contrast following a vascular or neural pattern was visualized under continuous fluoroscopy. Next, 0.25 ml of preservative-free 0.5% bupivicaine was injected at each level. There was no unusual discomfort expressed by Maria Esther. The needles were withdrawn without difficulty. (49 mls of Omnipaque was wasted) Maria Esther was observed and was without hemodynamic, neurologic, or allergic reactions.? Fluoroscopic images were digitally archived. Provacative testing using the Modified Shaver's facet loading test- Left side Right Side Directly before the block VAS (0-10) = 10/10 VAS (0-10) = 10/10 Five minutes after the block VAS (0-10) = 7/10 VAS (0-10) = 7/10 Percentage relief obtained with this diagnostic block 30% 30% Any improved physical functioning directly after the blocks? She was able to move her low back a little better. Follow up plans and appointments were discussed with Maria Esther. Maria Esther was instructed to keep careful note of how the usual pain was modified by these injections. Specifically, to keep a pain diary for the next 4 hours using a numeric pain scale of 0-10 and report these results. Post procedure instruction was given as documented in the nursing documentation and having met discharge criteria, the patient was [facility] from the [facility]. Based on the medial branches blocked today, if they patient has adequate relief and we are able to proceed to radiofrequency ablation, the treatment should result in the denervation of the bilateral L4-L5 and L5-S1 facet joints. We would expect to denervate a total of 4 facets during the radiofrequency ablation. COMMENTS: No apparent complications. Post-procedure pain: VAS= 7/10 Maria Esther will call back with 0-4 hour post-procedure pain scores. I personally performed the entire procedure. DANNY MCKEON DO, MPH ABPM&R-subspecialty board certification in Pain Medicine [facility] Coding Conscious Sedation used for procedure: No CPT Codes: LMBB (includes Fluoro) Lumbar/Sacral, single lvl *BILATERAL* - [id number] ([id number]~G5) LMBB (includes Fluoro) Lumbar/Sacral, 2nd lvl - 23354 ([id number] ~G) Additional Codes: Date of Service (94531) Date of service: 03/29/25
[2025-03-29] MEDS: Bupivacaine 0.5% Pres-Free 10 ML VIAL IJ (16:00)
[2025-03-29] MEDS: Nerve Block Tray 1 EACH MC (16:00)
[2025-03-29] MEDS: Omnipaque 240 MG/ML 50 ML BTL IJ (16:00)
== END 2025-03-29 14:48 | disposition home or self-care (01) ==
LOC: PC 14:47
PROVIDERS: PCP Nurse Practitioner Family; Visit Provider Preventive Medicine Occupational Medicine
DX: M47.816 Spondylosis without myelopathy or radiculopathy, lumbar region (principal); M54.50 Low back pain, unspecified
CPT/HCPCS: 64493; 64494; 72100; J0665; Q9967

== ENCOUNTER 2025-04-05 03:30 | Outpatient (CLI) | payer MEDICARE, SELFPAY ==
[2025-04-05 10:59] LABS: Hemoglobin A1C 5.7 % (<5.7)
[2025-04-05 11:38] LABS: Anion Gap 3.4 mmol/L (3-11); BUN 18 mg/dL (7-18); CO2 33.6 mmol/L (21.0-32.0); CREATININE 0.9 mg/dL (0.55-1.02); Calcium 9.1 mg/dL (8.5-10.1); Calculated LDL 94 mg/dL (<100); Chloride 105 mmol/L (98-107); Cholesterol 184 mg/dL (<200); Estimated GFR 65.84 (mL/min/1.73m2); Glucose 92 mg/dL (74-106); HDL Cholesterol 73 mg/dL (>or=50); Potassium 3.2 mmol/L (3.5-5.1); Sodium 142 mmol/L (136-145); TSH (W/Ref FT4) 0.84 uIU/mL (0.36-3.74); Triglyceride 88 mg/dL (<150)
== END 2025-04-05 03:31 | disposition home or self-care (01) ==
LOC: LBO 03:30
PROVIDERS: PCP Nurse Practitioner Family; Visit Provider Nurse Practitioner Family
DX: I10 Essential (primary) hypertension (principal); R73.03 Prediabetes
CPT/HCPCS: 36415; 80048; 80061; 83036; 84443